=== PATIENT | female | born 1960 | race Caucasian/White ===

== ENCOUNTER 2020-04-27 13:43 | Outpatient (CLI) | payer MEDICARE, MEDICAID, SELFPAY ==
--- NOTE | ~2020-04-27 | CT_ITS ---
EXAMINATION: CT abdomen wo con DATE: 04/27/2020 14:56 INDICATION: Upper abdominal pain, unspecified. TECHNIQUE: Computed tomography (CT) of the abdomen was performed without intravenous contrast. Automa edvin exposure control and iterative reconstruction technique were employed. The dose-length product wa s 979.30 mGy-cm. COMPARISON: CT abdomen and pelvis 04/15/2018 FINDINGS: The visualized portions of the lung bases demonstrate mild atelectasis. No pleural effusion . The heart size is normal. There are coronary artery calcifications. No pericardial effusion. The li mili, gallbladder, spleen, pancreas, and adrenal glands are normal. There is a 4 mm stone in right kid manju. There is a 3 mm stone in left kidney. There are no dilated loops of bowel. There are no patholog ically enlarged lymph nodes. There is no free intraperitoneal fluid. There is lumbar levocurvature an d severe spondylosis. IMPRESSION: 1. Small bilateral nonobstructing kidney stones. Reviewed, dictated and finalized at location B.
== END 2020-04-27 13:44 | disposition home or self-care (01) ==
PROVIDERS: PCP Family Medicine; Visit Provider General Practice
DX: R14.0 Abdominal distension (gaseous) (principal); N20.0 Calculus of kidney
CPT/HCPCS: 74150

== ENCOUNTER 2021-02-23 14:00 | Outpatient (CLI) | payer MEDICARE, MEDICAID, SELFPAY ==
--- NOTE | ~2021-02-23 | CT_ITS ---
EXAMINATION: CT abdomen pelvis wo con DATE: 02/23/2021 15:10 INDICATION: Abdominal distention. Abdominal pain. TECHNIQUE: Computed tomography (CT) of the abdomen and pelvis was performed without intravenous contr ast. Automated exposure control and iterative reconstruction technique were employed. The dose-length product was 1426.67 mGy-cm. COMPARISON: CT abdomen 04/27/20 FINDINGS: The visualized portions of the lung bases demonstrate mild atelectasis. No pleural effusion . Cardiomegaly is noted. There are coronary artery calcifications. No pericardial effusion. The liver , spleen, gallbladder, pancreas, adrenal glands, and left kidney are normal. There is a 5 mm stone in right kidney. There is diverticulosis of the colon without evidence of diverticulitis. There are no dilated loops of bowel. The appendix is normal. There are no pathologically enlarged lymph nodes. The re is no free intraperitoneal fluid. There is severe lumbar spondylosis. IMPRESSION: 1. No etiology for the patient's symptoms. Reviewed, dictated and finalized at location A.
--- NOTE | ~2021-02-23 | CT_ITS ---
EXAMINATION: CT brain wo con DATE: 02/23/2021 15:10 INDICATION: Headache. TECHNIQUE: Computed tomography (CT) of the head was performed without intravenous contrast. The dose- length product was 605.33 mGy-cm. Automated exposure control and iterative reconstruction technique w ere employed. COMPARISON: CT dated 01/20/2018 FINDINGS: Stable chronic right occipital lobe infarction with encephalomalacia. Mild atrophy. There a re scattered mild periventricular and subcortical white matter changes, most likely related to small vessel ischemic disease (microangiopathy). No acute intracranial hemorrhage, infarction, mass or mass effect. No ventriculomegaly or midline shift. Basilar cisterns are patent. There is intracranial ath erosclerosis. No depressed skull fractures. Paranasal sinuses and mastoids are pneumatized. No depres sed skull fractures. IMPRESSION: 1. No acute intracranial abnormality. 2: Chronic right occipital lobe infarction. 3: Chronic age-related findings. Reviewed, dictated and finalized at location B.
== END 2021-02-23 14:01 | disposition home or self-care (01) ==
PROVIDERS: PCP Internal Medicine; Visit Provider Internal Medicine
DX: R51.9 Headache, unspecified (principal); R10.9 Unspecified abdominal pain
CPT/HCPCS: 70450; 74176

== ENCOUNTER 2021-03-29 13:20 | Outpatient (CLI) | payer MEDICARE, MEDICAID, SELFPAY ==
--- NOTE | ~2021-03-29 | CT_ITS ---
EXAMINATION: CT sinus wo con DATE: 03/29/2021 14:14 INDICATION: Excessive sinus drainage TECHNIQUE: Computed tomography (CT) of the chest was performed without intravenous contrast. Automate d exposure control and iterative reconstruction technique were employed. Exam dose: 261.91 mGy-cm to joyce exam DLP. COMPARISON: 02/23/2021 CT brain FINDINGS: There is leftward deviation of the nasal septum. The nasal turbinates are symmetric in size . Minimal clementina bullosa of the right middle nasal turbinate. The ostiomeatal units are patent. The paranasal sinuses are normally developed and aerated. No mucoperiosteal thickening, soft tissue o pacity, fluid level. The mastoid air cells are normally developed and aerated on the left. The mastoid air cells are normally developed on the right, with effusions of a small minority of the lower posterior right mastoid air cells. Middle and inner ear apparatus appear unremarkable. IMPRESSION: Leftward deviation of nasal septum Patent paranasal sinuses Reviewed, dictated and finalized at Location A. Reviewed, dictated and finalized at location A.
== END 2021-03-29 13:21 | disposition home or self-care (01) ==
PROVIDERS: PCP Internal Medicine; Visit Provider Internal Medicine
DX: J34.89 Other specified disorders of nose and nasal sinuses (principal); J34.2 Deviated nasal septum
CPT/HCPCS: 70486